=== PATIENT | male | born 1935 | race African-American/Black ===

== ENCOUNTER 2017-06-24 11:53 | Emergency (ER) | payer MEDICARE, MEDICAID ==
[~2017-06-24] VITALS: Ht 167.6 cm; Wt 100.9 kg
[~2017-06-24 11:53] MED LIST: ATEN25TA PO; BRIN1SUS2 EACH EYE; CARV12.52 PO; DULO1CAP2 PO; POTA10TA8 PO; PRAV40TA2 PO; TIMO0.2517 EACH EYE; TRAV0.00 LEFT EYE; WARF-58 PO
[2017-06-24 11:54] VITALS: BP 136/76; PULSE 73; RESP 18; TEMP 98.1; O2SAT 96
[2017-06-24] MEDS ORDERED: TERA2CAP3 PO (12:22)
[2017-06-24] MEDS ORDERED: POTA10CA PO (12:23)
[2017-06-24] MEDS ORDERED: FURO20TA PO (12:23)
[2017-06-24] MEDS ORDERED: AMLO10 PO (12:24)
[2017-06-24] MEDS ORDERED: AUGM875T3 PO (13:04)
[2017-06-24] MEDS ORDERED: BENZ100 PO (13:04)
--- NOTE | 2017-06-24 13:06 | PD ---
HPI Chief Complaint: Cold / Flu Symptoms Time Seen by Provider: 12:33 Travel History International Travel<30 days: No Contact w/Intl Traveler<30days: No Traveled to known affect area: No History of Present Illness HPI 81-year-old male presents to the emergency Department with complaint of nasal congestion cough, throat irritation since Thursday. He says his throat feels like there is something stuck in and he can't clear his secretions when he coughs. Denies throat pain, lump in throat, difficulty swallowing, unusual drooling. Denies ear pain. Denies fevers, vomiting. Denies chest pain, chest tightness, shortness of breath, wheezing. Has been taking Mucinex DM with good relief of symptoms. Has not tried any other treatments alleviates symptoms. Symptoms are mild in severity. Dr. Rutherford is primary care provider. History of atrial fibrillation and hypertension. Takes Coumadin. Denies hemoptysis. Has no other medical complaints. Allergies to doxycycline, minocycline, tigecycline. No other modifying factors or associated signs and symptoms. PFSH Past Medical History Hx Anticoagulant Therapy: Yes (WARFARIN) Arthritis: Yes Atrial Fibrillation: Yes Cancer: No Cardiovascular Problems: Yes (AFIB, HTN) High Cholesterol: Yes Diabetes: No Diminished Hearing: No Endocrine: No Glaucoma: Yes Genitourinary: Yes Hepatitis: No Hiatal Hernia: No Hypertension: Yes Immune Disorder: No Musculoskeletal: Yes Neurologic: Yes (pheripheral neuropathy) Psychiatric: No Reproductive: No Respiratory: Yes Immunizations Current: Yes Schizophrenia: Yes Seizures: Yes Thyroid Disease: No Tetanus Vaccination: > 5 Years Influenza Vaccination: Yes Past Surgical History AICD: No Eye Surgery: Yes (LEFT EYE CATARACT EXTRACT) Genitourinary Surgery: Yes (PENILE IMPLANT AND THEN REMOVAL) Joint Replacement: No Pacemaker: No Other Surgery: Yes Social History Alcohol Use: No (QUIT 1996) Tobacco Use: No (QUIT 1999) Substance Use: No Allergies-Medications (Allergen,Severity, Reaction): Coded Allergies: doxycycline (Unverified Adverse Reaction, Intermediate, Nausea/Vomiting, 06/24/17) minocycline (Unverified Adverse Reaction, Intermediate, Nausea/Vomiting, 06/24/17) tigecycline (Unverified Adverse Reaction, Intermediate, Nausea/Vomiting, 06/24/17) *MDRO Multi-Drug Resistant Organism (Verified Adverse Reaction, Unknown, 06/24/17) 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 Reported Meds & Prescriptions Reported Meds & Active Scripts Active Augmentin (Amoxicillin-Clavulanate) 875-125 Mg Tab 1 Tab PO BID 10 Days Tessalon Perles (Benzonatate) 100 Mg Cap 100 Mg PO TID PRN 3 Days Reported Norvasc (Amlodipine Besylate) 10 Mg Tab 10 Mg PO DAILY Furosemide 20 Mg Tab 20 Mg PO DAILY Potassium Chloride ER (Potassium Chloride) 10 Meq Cap 10 Meq PO BID Terazosin (Terazosin HCl) 2 Mg Cap 2 Mg PO HS Carvedilol Unknown Strength Tab Unknown Dose PO DAILY Pravastatin 40 Mg Tab 40 Mg PO DAILY Simbrinza Opth Drops (Brinzolamide-Brimonidine Opth Drops) 1-0.2% Susp 1 Drop EACH EYE Q8HR Timolol Maleate (Timolol Maleate (Ophth)) 0.25 % Rosa 1 Drop EACH EYE BID Travatan Z Opth Drops (Travoprost) Unknown Strength Soln Unknown Dose LEFT EYE HS Warfarin 3 Mg Tab 3 Mg PO DAILY Duloxetine DR (Duloxetine HCl) 30 Mg Capdr 30 Mg PO DAILY Review of Systems Except as stated in HPI: all other systems reviewed are Neg Physical Exam Narrative GENERAL: Well-nourished, well-developed elderly black male patient, in no acute distress; afebrile, nontoxic-appearing SKIN: Warm and dry. No rash. HEAD: Atraumatic. Normocephalic. EYES: Pupils equal and round. No scleral icterus. No injection or drainage. ENT: Mucosa pink and moist. Oropharynx without erythema or exudates. No uvular edema. No uvular, palatal, or tonsillar deviation. Airway patent. EARS: Bilateral pinnae and external canals appear within normal limits. Bilateral tympanic membranes without erythema, dullness or perforation. NECK: Trachea midline. No lymphadenopathy. CARDIOVASCULAR: Regular rate and rhythm. No murmur appreciated. RESPIRATORY: No accessory muscle use. Clear to auscultation. Breath sounds equal bilaterally. No retractions or tachypnea. GASTROINTESTINAL: Abdomen soft, non-tender, nondistended. Hepatic and splenic margins not palpable. Bowel sounds are active 4 quadrants. MUSCULOSKELETAL: No obvious deformities. No clubbing. No cyanosis. No edema. NEUROLOGICAL: Awake and alert. Oriented 3. No obvious cranial nerve deficits. Motor grossly within normal limits. Normal speech. Moves all extremities. 5/5 strength to all extremities. PSYCHIATRIC: Appropriate mood and affect; insight and judgment normal. Data Data Last Documented VS Vital Signs Date Time Temp Pulse Resp B/P (MAP) Pulse Ox O2 Delivery O2 Flow Rate FiO2 06/24/17 12:16 71 18 100 Room Air 06/24/17 11:54 98.1 136/76 (96) Orders Orders Ed Discharge Order (06/24/17 13:06) [facility] Medical Decision Making Medical Screen Exam Complete: Yes Emergency Medical Condition: Yes Medical Record Reviewed: Yes Differential Diagnosis Viral illness, upper respiratory infection, cough Narrative Course 81-year-old male that is very well-appearing with cough/cold symptoms since Thursday. He is afebrile and nontoxic-appearing. Lung sounds are clear and equal throughout. He denies chest tightness, chest pain, shortness of breath, wheezing. Denies fevers. Physical exam is unremarkable. I discussed viral illness and symptomatic management. Patient requesting prescription for antibiotics. Augmentin and Tessalon Perles prescribed for home. Instructed patient to follow up with primary care provider. Patient verbalizes understanding and agreement with treatment plan. Patient is medically cleared and stable for discharge. Discussed reasons to return to the emergency department. Patient agrees with treatment plan. The patients vital signs are stable and the patient is stable for outpatient follow-up and treatment. Patient discharged home, stable and in no acute distress. Diagnosis Primary Impression: URI (upper respiratory infection) Qualified Codes: J06.9 - Acute upper respiratory infection, unspecified Referrals: Primary Care Physician Patient Instructions: Cold Symptoms (ED), General Instructions, Safe Use of Cough and Cold Medicines (ED) Additional Instructions: Ibuprofen or Tylenol as directed and as needed to reduce fever; may alternate ibuprofen and Tylenol as needed every 3 hours to minimize fever [id number] cold/flu medications as directed and as needed for symptom management Get plenty of sleep/rest Drink plenty of fluids to prevent dehydration; such as Gatorade, Powerade, Pedialyte [place] diet to encourage nutrition such as crackers, fruit, applesauce, toast, soup etc. Use an air humidifier/turn off ceiling fans Follow-up with your primary care provider within 1 day Return immediately to the emergency department with worsening of symptoms Med/Other Pt SpecificInfo: Prescription(s) given Scripts Amoxicillin-Clavulanate (Augmentin) 875-125 Mg Tab 1 TAB PO BID for Infection for 10 Days, #20 TAB 0 Refills Prov: Anne-Marie Fischer 06/24/17 Benzonatate (Tessalon Perles) 100 Mg Cap 100 MG PO TID Y for COUGH for 3 Days, CAP 0 Refills Prov: Anne-Marie Fischer 06/24/17 Disposition: 01 DISCHARGE HOME Condition: Stable Anne-Marie Fischer Jun 24, 2017 13:05
== END 2017-06-24 14:17 | disposition home or self-care (01) ==
LOC: NEPD 11:53
DX: J06.9 Acute upper respiratory infection, unspecified (principal); E78.00 Pure hypercholesterolemia, unspecified; I10 Essential (primary) hypertension; I48.91 Unspecified atrial fibrillation; Z79.01 Long term (current) use of anticoagulants; Z87.891 Personal history of nicotine dependence
CPT/HCPCS: 99284

== ENCOUNTER 2017-06-28 09:09 | Emergency (ER) | payer MEDICARE, MEDICAID ==
[~2017-06-28] VITALS: Ht 167.6 cm; Wt 102.0 kg
[~2017-06-28 09:09] MED LIST changes: +AMLO10 PO; -ATEN25TA PO; +AUGM875T3 PO; +BENZ100 PO; +FURO20TA PO; +POTA10CA PO; -POTA10TA8 PO; +TERA2CAP3 PO
[2017-06-28 09:11] VITALS: BP 133/84; PULSE 69; RESP 14; TEMP 97.8; O2SAT 99
[2017-06-28] MEDS ORDERED: LOMO2.5T PO (09:59)
--- NOTE | 2017-06-28 09:59 | PD ---
HPI Chief Complaint: GI Complaint Time Seen by Provider: 09:29 Travel History International Travel<30 days: No Contact w/Intl Traveler<30days: No Traveled to known affect area: No History of Present Illness HPI The patient 81 years old and arrives here because 2 days prior he was prescribed Augmentin here due to the cough. He reports diarrhea for the past day and a half. He reports uncontrolled diarrhea with incontinence over the past several hours. He's had no fever. He also complains of coughing and the sensation of throat fullness, the initial complaint at the prior visit. He reports some dyspnea in association with severe coughing spells. He's had no fever. No blood in the diarrhea. He's had no abdominal pain and he's had no vomiting or nausea. PFSH Past Medical History Hx Anticoagulant Therapy: Yes (WARFARIN) Arthritis: Yes Atrial Fibrillation: Yes Cancer: No Cardiovascular Problems: Yes (AFIB, HTN) High Cholesterol: Yes Diabetes: No Diminished Hearing: No Endocrine: No Glaucoma: Yes Genitourinary: Yes Hepatitis: No Hiatal Hernia: No Hypertension: Yes Immune Disorder: No Musculoskeletal: Yes Neurologic: Yes (pheripheral neuropathy) Psychiatric: No Reproductive: No Respiratory: Yes Immunizations Current: Yes Schizophrenia: Yes Seizures: Yes Thyroid Disease: No Past Surgical History AICD: No Eye Surgery: Yes (LEFT EYE CATARACT EXTRACT) Genitourinary Surgery: Yes (PENILE IMPLANT AND THEN REMOVAL) Joint Replacement: No Pacemaker: No Other Surgery: Yes Social History Alcohol Use: No (QUIT 1996) Tobacco Use: No (QUIT 1999) Substance Use: No Allergies-Medications (Allergen,Severity, Reaction): Coded Allergies: doxycycline (Unverified Adverse Reaction, Intermediate, Nausea/Vomiting, 06/28/17) minocycline (Unverified Adverse Reaction, Intermediate, Nausea/Vomiting, 06/28/17) tigecycline (Unverified Adverse Reaction, Intermediate, Nausea/Vomiting, 06/28/17) *MDRO Multi-Drug Resistant Organism (Verified Adverse Reaction, Unknown, 06/28/17) 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 Reported Meds & Prescriptions Reported Meds & Active Scripts Active Marathon Nasal [facility] (Sodium Chloride) 0.65% [facility] 2 [facility] EACH NARE DIRECTED PRN Flagyl (Metronidazole) 500 Mg Tab 500 Mg PO TID Tessalon Perles (Benzonatate) 100 Mg Cap 100 Mg PO TID PRN 3 Days Reported Norvasc (Amlodipine Besylate) 10 Mg Tab 10 Mg PO DAILY Furosemide 20 Mg Tab 20 Mg PO DAILY Potassium Chloride ER (Potassium Chloride) 10 Meq Cap 10 Meq PO BID Terazosin (Terazosin HCl) 2 Mg Cap 2 Mg PO HS Carvedilol Unknown Strength Tab Unknown Dose PO DAILY Pravastatin 40 Mg Tab 40 Mg PO DAILY Simbrinza Opth Drops (Brinzolamide-Brimonidine Opth Drops) 1-0.2% Susp 1 Drop EACH EYE Q8HR Timolol Maleate (Timolol Maleate (Ophth)) 0.25 % Rosa 1 Drop EACH EYE BID Travatan Z Opth Drops (Travoprost) Unknown Strength Soln Unknown Dose LEFT EYE HS Warfarin 3 Mg Tab 3 Mg PO DAILY Duloxetine DR (Duloxetine HCl) 30 Mg Capdr 30 Mg PO DAILY Review of Systems General / Constitutional: No: Fever Gastrointestinal: Positive: Diarrhea, No: Nausea, Vomiting Physical Exam Narrative GENERAL: Well-nourished well-developed 81-year-old male resting comfortably on the bed SKIN: Warm and dry. HEAD: Normocephalic. EYES: No scleral icterus. No injection or drainage. ENT: Posterior oropharynx is widely patent without depression of soft palate no erythema. No significant rhinorrhea. NECK: Supple, trachea midline. No JVD or lymphadenopathy. CARDIOVASCULAR: Regular rate and rhythm without murmurs, gallops, or rubs. RESPIRATORY: Breath sounds equal bilaterally. No accessory muscle use. GASTROINTESTINAL: Soft. There is no focus of tenderness. 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 No gross deformity. Moving all extremities normally BACK: Nontender without obvious deformity. No CVA tenderness. Data Data Last Documented VS Vital Signs Date Time Temp Pulse Resp B/P (MAP) Pulse Ox O2 Delivery O2 Flow Rate FiO2 06/28/17 09:11 97.8 69 14 133/84 (100) 99 Room Air VS reviewed Orders Orders C Diff Toxin Pcr (06/28/17 10:09) Al-Mag Hy-Si 40-40-4 Mg/Ml Liq (Mag-Al P (06/28/17 10:15) Lidocaine 2% Viscous (Xylocaine 2% Visco (06/28/17 10:15) Ed Discharge Order (06/28/17 11:17) Labs Laboratory Tests Test 06/28/17 10:41 [facility] Medical Decision Making Medical Screen Exam Complete: Yes Emergency Medical Condition: Yes Medical Record Reviewed: Yes Differential Diagnosis post-nasal drip, pna, reflux, CHF, oropharyngeal mass Narrative Course The patient will be sent home. Marathon saline spray may be of some benefit for the coughing spells potentially related to postnasal drip. There is fairly low pretest probability for C. difficile colitis, PCR sample sent. Given the age and frequency of diarrhea seen here, 4 times in 2 hours, we will prescribe a course of Flagyl. Discontinuation of Augmentin discussed. Diagnosis Primary Impression: Diarrhea Qualified Codes: R19.7 - Diarrhea, unspecified Additional Impression: Cough Referrals: Cheyenne Rutherford MD 2 days Med/Other Pt SpecificInfo: Prescription(s) given Scripts Saline Nasal (Marathon Nasal [facility]) 0.65% [facility] 2 SPRAY EACH NARE DIRECTED Y for NASAL CONGESTION, #1 BOTTLE 0 Refills Prov: Douglas Marino MD 06/28/17 Metronidazole (Flagyl) 500 Mg Tab 500 MG PO TID for Infection, #10 TAB 0 Refills Prov: Douglas Marino MD 06/28/17 Disposition: 01 DISCHARGE HOME Condition: Stable Douglas Marino MD Jun 28, 2017 09:59
[2017-06-28] MEDS ORDERED: LIDOCAINE VISCOUS 2% SOLN 15 ML UDC PO ONE (10:15)
[2017-06-28] MEDS ORDERED: ALUMINUM/MAGNESIUM/SIMETH 30 ML CUP PO ONE (10:15)
[2017-06-28] MEDS ORDERED: METR-1 PO (11:28)
[2017-06-28] MEDS ORDERED: OCEA0.653 EACH NARE (11:39)
== END 2017-06-28 11:50 | disposition home or self-care (01) ==
LOC: NEPD 09:09
DX: R19.7 Diarrhea, unspecified (principal); R05 Cough; E78.00 Pure hypercholesterolemia, unspecified; I10 Essential (primary) hypertension; I48.91 Unspecified atrial fibrillation; F20.9 Schizophrenia, unspecified; H40.9 Unspecified glaucoma
CPT/HCPCS: 87493; 99283